=== PATIENT | male | born 1970 | race Caucasian/White ===

== ENCOUNTER 2021-07-10 13:56 | Inpatient (IN) | payer MEDICAID ==
[~2021-07-10] VITALS: Ht 177.8 cm; Wt 77.6 kg
[2021-07-10] MEDS ORDERED: ZOLPIDEM TARTRATE 10 MG TABLET PO PRN (18:30)
[2021-07-10 20:01] VITALS: BP 126/82
[2021-07-11 05:09] VITALS: BP 104/71
[2021-07-11 07:37] LABS: BASOPHILS % (AUTO) 0.4 % (0.0-2.0); EOSINOPHILS % (AUTO) 2.2 % (1.0-6.0); HEMATOCRIT 49.3 % (41-53); HEMOGLOBIN 16.6 g/dL (13.5-17.5); LYMPHOCYTES # (AUTO) 1.5 K/uL (1.0-4.8); LYMPHOCYTES % (AUTO) 19.5 % (22.0-44.0); MEAN CORPUSCULAR HEMOGLOBIN 30.5 pg (26.0-34.0); MEAN CORPUSCULAR HGB CONC 33.6 G/dL (31.0-37.0); MEAN CORPUSCULAR VOLUME 91 fL (80-100); MONOCYTES # (AUTO) 0.7 K/uL (0.1-1.0); MONOCYTES % (AUTO) 8.4 % (2.0-9.0); NEUTROPHILS # (AUTO) 5.5 K/uL (1.8-7.7); NEUTROPHILS % (AUTO) 69.5 % (40.0-70.0); PLATELET COUNT (AUTO) 255 K/uL (150-450); RED BLOOD CELL COUNT(AUTO) 5.42 MIL/uL (4.50-5.90); RED CELL DISTRIBUTION WIDTH 13.4 % (11.5-14.5)
[2021-07-11 08:00] LABS: ALANINE AMINOTRANSFERASE 29 U/L (12-78); ALBUMIN 3.2 g/dL (3.4-5.0); ALKALINE PHOSPHATASE 86 U/L (46-116); ANION GAP 3 mmol/L (8-16); ASPARTATE AMINOTRANSFERASE 14 U/L (15-37); BILIRUBIN,TOTAL 0.6 mg/dL (0.1-1.0); CALCIUM, TOTAL 8.8 mg/dL (8.8-10.5); CARBON DIOXIDE 30 mmol/L (22-29); CHLORIDE 107 mmol/L (98-107); CHOL/HDL RATIO 3.9 (4.2-7.3); CHOLESTEROL 181 mg/dL (131-200); CREATININE 0.82 mg/dL (0.60-1.30); FREE T4 (FREE THYROXINE) 0.62 ng/dL (0.76-1.46); GLOMERULAR FILTR. RATE CALC > 60 mL/min (>60); GLUCOSE,RANDOM 96 mg/dL (70-110); HDL CHOLESTEROL 47 mg/dL (40-60); LDL CHOL (CALC.) 86 mg/dL (0-130); POTASSIUM 4.2 mmol/L (3.5-5.1); SODIUM SERUM 140 mmol/L (136-145); THYROID STIMULATING HORMONE 1.44 uIU/mL (0.36-3.74); TOTAL PROTEIN, SERUM 6.8 g/dL (6.4-8.2); TRIGLYCERIDES 238 mg/dL (15-150); UREA NITROGEN, BLOOD 20 mg/dL (7-18)
[2021-07-11 08:10] LABS: HEMOGLOBIN A1C 5.9 % (3.8-5.6)
[2021-07-11] MEDS: LORazepam 2 MG TABLET PO PRN (09:29)
[2021-07-11 10:00] VITALS: BP 118/65
[2021-07-11] MEDS ORDERED: MAGNESIUM HYDROXIDE SUSPENSION 30 ML UDCUP PO PRN (10:00)
[2021-07-11] MEDS ORDERED: ALBUTEROL SULFATE HFA 90 MCG/PUFF 8 GM INHALER IH PRN (10:00)
[2021-07-11] MEDS ORDERED: MAG HYDROX/AL HYDROX/SIMETH ES 30 ML SUSPENSION UDCUP PO PRN (10:00)
[2021-07-11] MEDS ORDERED: NICOTINE 14 MG/24 HOUR PATCH TD PRN (10:00)
[2021-07-11] MEDS ORDERED: CloNIDine HCL 0.1 MG TABLET PO PRN (10:00)
[2021-07-11] MEDS ORDERED: ONDANSETRON HCL 4 MG TABLET PO PRN (10:00)
[2021-07-11] MEDS ORDERED: LOPERAMIDE HCL 2 MG CAPSULE PO PRN (10:00)
[2021-07-11] MEDS ORDERED: DOCUSATE SODIUM 100 MG CAPSULE PO PRN (10:00)
[2021-07-11] MEDS ORDERED: GuaiFENesin/D-METHORPHAN [SUGAR-FREE] 200-20MG/10 ML SYRUP UDCUP PO PRN (10:00)
[2021-07-11] MEDS ORDERED: PETROLATUM,WHITE 28 GM JELLY TP PRN (10:00)
[2021-07-11] MEDS ORDERED: IBUPROFEN 400 MG TABLET PO PRN (10:00)
[2021-07-11] MEDS ORDERED: ACETAMINOPHEN 325 MG TABLET PO PRN (10:00)
[2021-07-11] MEDS: RisperiDONE 1 MG TABLET PO SCH (11:11)
[2021-07-11] MEDS: FLUoxetine HCL 20 MG CAPSULE PO SCH (11:11)
[2021-07-11 16:26] VITALS: BP 102/61
[2021-07-12 05:11] VITALS: BP 108/64
[2021-07-12 08:24] VITALS: BP 125/61
[2021-07-12] MEDS: LORazepam 2 MG TABLET PO PRN ×2 (08:30→17:36)
[2021-07-12] MEDS: FLUoxetine HCL 20 MG CAPSULE PO SCH (09:04)
[2021-07-12] MEDS: RisperiDONE 1 MG TABLET PO SCH (09:04)
[2021-07-12 16:14] VITALS: BP 100/62
[2021-07-12] MEDS: HALOPERIDOL 5 MG TABLET PO PRN (17:36)
[2021-07-13 05:15] VITALS: BP 105/61
[2021-07-13] MEDS: RisperiDONE 1 MG TABLET PO SCH (08:15)
[2021-07-13] MEDS: FLUoxetine HCL 20 MG CAPSULE PO SCH (08:15)
[2021-07-13 09:08] VITALS: BP 107/60
[2021-07-13] MEDS: LORazepam 2 MG TABLET PO PRN ×2 (11:46→16:04)
[2021-07-13] MEDS: HALOPERIDOL 5 MG TABLET PO PRN (16:04)
[2021-07-13 16:25] VITALS: BP 110/62
[2021-07-14 07:08] VITALS: BP 114/71
[2021-07-14] MEDS: FLUoxetine HCL 20 MG CAPSULE PO SCH (09:01)
[2021-07-14] MEDS: LORazepam 2 MG TABLET PO PRN ×2 (09:01→17:19)
[2021-07-14] MEDS: RisperiDONE 1 MG TABLET PO SCH (09:01)
[2021-07-14 09:12] VITALS: BP 118/62
[2021-07-14 16:10] VITALS: BP 101/62
[2021-07-14] MEDS: HALOPERIDOL 5 MG TABLET PO PRN (17:19)
[2021-07-15 02:19] VITALS: BP 100/64
[2021-07-15] MEDS: LORazepam 2 MG TABLET PO PRN ×3 (03:31→14:51)
[2021-07-15 08:00] VITALS: BP 116/74
[2021-07-15] MEDS: FLUoxetine HCL 20 MG CAPSULE PO SCH (08:35)
[2021-07-15] MEDS: RisperiDONE 1 MG TABLET PO SCH (08:35)
[2021-07-15] MEDS: HALOPERIDOL 5 MG TABLET PO PRN (15:49)
[2021-07-15 16:32] VITALS: BP 107/66
[2021-07-16 06:45] VITALS: BP 90/62
[2021-07-16 08:18] VITALS: BP 107/62
[2021-07-16] MEDS: FLUoxetine HCL 20 MG CAPSULE PO SCH (08:31)
[2021-07-16] MEDS: RisperiDONE 1 MG TABLET PO SCH (08:31)
[2021-07-16] MEDS: LORazepam 2 MG TABLET PO PRN ×2 (08:31→15:48)
[2021-07-16] MEDS: HALOPERIDOL 5 MG TABLET PO PRN (15:48)
[2021-07-16 16:26] VITALS: BP 106/74
[2021-07-16] MEDS ORDERED: FLUO20CA36 PO (16:51)
[2021-07-16] MEDS ORDERED: RISP1TAB89 PO (16:52)
== END 2021-07-16 17:10 | disposition home or self-care (01) | DRG 753 ==
LOC: B3A 18:58
PROVIDERS: ADMIT Psychiatry & Neurology Child & Adolescent Psychiatry; ATTEND Psychiatry & Neurology Child & Adolescent Psychiatry
DX: F31.4 Bipolar disorder, current episode depressed, severe, without psychotic features (principal); R45.851 Suicidal ideations; E78.5 Hyperlipidemia, unspecified; F10.10 Alcohol abuse, uncomplicated; F41.9 Anxiety disorder, unspecified; F12.10 Cannabis abuse, uncomplicated; Z59.0 Homelessness; Z79.899 Other long term (current) drug therapy
CPT/HCPCS: 80053; 80061; 83036; 84439; 84443; 85025; 87081